=== PATIENT | male | born 1995 | race Caucasian/White ===

== ENCOUNTER 2017-12-24 23:56 | Emergency (ER) | payer SELFPAY ==
[~2017-12-24] VITALS: Ht 172.7 cm; Wt 59.0 kg
[2017-12-24 23:59] VITALS: BP 113/73
== END 2017-12-25 | disposition left against medical advice (07) ==
LOC: ER 23:56
DX: H57.8 Other specified disorders of eye and adnexa (principal); Z53.21 Procedure and treatment not carried out due to patient leaving prior to being seen by health care provider